=== PATIENT | female | born 1960 | race Caucasian/White ===

== ENCOUNTER 2016-10-07 10:59 | Emergency (ER) | payer OTHER ==
[~2016-10-07 10:59] MED LIST: GLUCTAB PO; LORT5TAB PO; PENI500T PO; PREM0.45 PO
[2016-10-07 11:09] VITALS: BP 146/84; PULSE 70; RESP 18; TEMP 98; O2SAT 100
[2016-10-07] MEDS ORDERED: TETANUS/DIPHTHERIA TOXOID ADULT 0.5 ML VIAL IM ONE (11:30)
[2016-10-07] MEDS ORDERED: AMOXICILLIN/CLAVULANATE K 875 MG TAB PO ONE (11:30)
[2016-10-07] MEDS ORDERED: IBUPROFEN 600 MG TAB PO ONE (11:30)
[2016-10-07] MEDS ORDERED: AUGM875T PO (11:36)
--- NOTE | 2016-10-07 11:36 | PD ---
HPI Chief Complaint: Bite or Sting Time Seen by Provider: 11:24 Travel History International Travel<30 days: No Contact w/Intl Traveler<30days: No Traveled to known affect area: No History of Present Illness HPI 56 year-old right handed female presents to the emergency room for evaluation of dog bite to the left index finger that occurred 1 hour prior to arrival. Patient states she was helping remove the dog from a crate when the dog bit her left hand. It broke skin on the left, lateral index finger. Patient also reports pain over the thenar eminence. Dog is available for observation. She called her physician who recommended she come to the emergency room for antibiotic therapy as she is status post liver transplant one year ago. Patient does not remember her last tetanus vaccination. Denies allergies. Smokes cigarettes. PFSH Past Medical History Blood Disorders: Yes Cancer: Yes (Liver) Diabetes: Yes Diminished Hearing: No Hepatitis: Yes Tetanus Vaccination: > 5 Years Influenza Vaccination: No ?: Not Menopausal: Yes Past Surgical History Cholecystectomy: Yes Hysterectomy: Yes (1998) Tonsillectomy: Yes Other Surgery: Yes (Liver [place]) Social History Alcohol Use: No Tobacco Use: No Substance Use: No Allergies-Medications (Allergen,Severity, Reaction): Coded Allergies: No Known Allergies (Verified , 10/07/16) Reported Meds & Prescriptions Reported Meds & Active Scripts Active Active Prescriptions or Reported Medications Unobtainable Review of Systems Except as stated in HPI: all other systems reviewed are Neg Physical Exam Narrative GENERAL: Well-nourished, well-developed female in no acute distress. Afebrile. Ambulatory. SKIN: Warm and dry. 1 cm superficial abrasion to the left lateral index finger. No other evidence of laceration or abrasion. No lymphangitis. HEAD: Normocephalic. EYES: No scleral icterus. No injection or drainage. NECK: Supple, trachea midline. No JVD or lymphadenopathy. CARDIOVASCULAR: Regular rate and rhythm without murmurs, gallops, or rubs. RESPIRATORY: Breath sounds equal bilaterally. No accessory muscle use. EXTREMITY: Left index finger tender to palpation. Full range of motion in all joints. No joint edema. Less than 2 second capillary refill distally. Data Data Last Documented VS Vital Signs Date Time Temp Pulse Resp B/P Pulse Ox O2 Delivery O2 Flow Rate FiO2 10/07/16 11:09 98.0 70 18 146/84 100 Orders Amoxicil-Clavulanate (Augmentin) (10/07/16 11:30) Tetanus/Diphtheria Tox Adult (Tetanus/Di (10/07/16 11:30) MDM Medical Decision Making Medical Screen Exam Complete: Yes Emergency Medical Condition: Yes Medical Record Reviewed: Yes Differential Diagnosis Dog bite versus abrasion versus lymphangitis Narrative Course 56-year-old female status post liver transplant one year ago presents to the emergency room for evaluation of dog bite to the left index finger that occurred 1 hour prior to arrival. Physical exam reveals a 1 cm superficial abrasion to the left lateral index finger over the DIP joint. No evidence of infection at this time. No erythema, lymphangitis, or edema. Full range of motion of left hand. Wound care given in the emergency room and tetanus updated. Dog is available for observation and rabies will be deferred at this time. Patient was given ibuprofen for pain. First dose of Augmentin given in the emergency room. Discharged with prescription for Augmentin and told to follow up with primary care physician in 48 hours for recheck. Given wound care instructions. Patient told to return sooner for signs of infection. She understands and agrees to plan. Diagnosis Primary Impression: Dog bite of multiple sites of left hand and fingers Qualified Code: S61.452A - Dog bite of multiple sites of left hand and fingers , initial encounter Referrals: Primary Care Physician Patient Instructions: Animal Bite (ED), General Instructions Additional Instructions: Rest and drink plenty fluids. Take Augmentin as directed, until gone. Keep wound clean and dry. Apply triple antibiotic ointment daily. Follow-up with your primary care physician in 48 hours for recheck. Return to the emergency room for worsening symptoms. Med/Other Pt SpecificInfo: Prescription(s) given Scripts Unable to Obtain Active Prescriptions or Reported Meds Disposition: 01 DISCHARGE HOME Condition: Stable Valery Grant October 07, 2016 11:36
== END 2016-10-07 11:45 | disposition home or self-care (01) ==
LOC: PHEFT 10:59
DX: S61.251A Open bite of left index finger without damage to nail, initial encounter (principal); Z23 Encounter for immunization; Z94.4 Liver transplant status; F17.210 Nicotine dependence, cigarettes, uncomplicated; E11.9 Type 2 diabetes mellitus without complications; W54.0XXA Bitten by dog, initial encounter; Y93.K9 Activity, other involving animal care; Y92.9 Unspecified place or not applicable; Y99.8 Other external cause status
CPT/HCPCS: 90471; 90714